=== PATIENT | female | born 1950 | race Caucasian/White ===

== ENCOUNTER → 2018-02-27 | Outpatient (CLI) | payer MEDICARE ==
[2018-02-27 09:02] LABS: Calcium 9.5 mg/dL (8.4-10.2)
[2018-02-27 09:04] LABS: Basophils % (A) 0 %; Eosinophils # (A) 0.1 k/uL (0-0.7); Eosinophils % (A) 1 %; HCT 38.7 % (34.0-46.0); HGB 12.5 gm/dL (11.4-16.0); Lymphocytes # (A) 1.4 k/uL (1.0-4.8); Lymphocytes % (A) 21 %; MCH 32.9 pg (25.0-35.0); MCHC 32.5 g/dL (31.0-37.0); MCV 101.2 fL (80.0-100.0); Macrocytosis Slight; Mean Platelet Volume 6.6; Monocytes # (A) 0.3 k/uL (0-1.0); Monocytes % (A) 5 %; Neutrophils % (A) 72 %; Platelet Count 312 k/uL (150-450); RBC 3.82 m/uL (3.80-5.40); RDW 13.4 % (11.5-15.5)
[2018-02-27 09:09] LABS: Partial Thromboplastin Time 26.3 sec (22.0-30.0)
[2018-02-27 09:21] LABS: Appearance,Urine Clear (Clear); Bilirubin,Urine Negative (Negative); Blood,Urine Negative (Negative); Color,Urine Yellow; Glucose,Urine (UA) Negative (Negative); Ketones,Urine Negative (Negative); Leukocyte Esterase,Urine Negative (Negative); Nitrite,Urine Negative (Negative); PH, Urine 5.5 (5.0-8.0); Protein,Urine Negative (Negative); Specific Gravity,Urine 1.013 (1.001-1.035); Urobilinogen,Urine <2.0 mg/dL (<2.0)
--- NOTE | 2018-02-27 11:27 | XR ---
EXAMINATION TYPE: XR chest 2V DATE OF EXAM: 02/27/2018 COMPARISON: None INDICATION: Surgical clearance TECHNIQUE: Frontal and lateral views of the chest are obtained. FINDINGS: The heart size is normal. The pulmonary vasculature is normal. Posterior costophrenic angle blunting is present. Correlate for atelectasis. Lungs otherwise are donya r. IMPRESSION: 1. Some posterior costophrenic angle atelectasis may be present. Chest is otherwise unremarkable.
== END | disposition home or self-care (01) ==
LOC: LABPAT 08:19
PROVIDERS: ATTEND Orthopaedic Surgery Orthopaedic Surgery of the Spine
DX: Z01.818 Encounter for other preprocedural examination (principal)
CPT/HCPCS: 71046; 80048; 81003; 85025; 85610; 85730; 86850; 86900; 86901

== ENCOUNTER 2018-03-06 10:01 | Inpatient (IN) | payer BC, MEDICARE ==
[2018-02-26 13:56] VITALS: BMI 24.2
[~2018-03-06 10:01] MED LIST: BACITRACIN 50,000 UNIT, POLYMYXIN B 500,000 UNIT in SODIUM CHLORIDE 0.9% IRRIGATIO 1,00... IRRIGATION ONE; DEXAMETHASONE SOD PHOSPHATE 10 MG/ML 1 ML VIAL IV ONE; LIDOCAINE 1% 20 ML VIAL (10MG/ML) FOR IV START INTRADERMA PRN; MIDAZOLAM 2 MG/2 ML VIAL IV PRN; ONDANSETRON 4 MG/2 ML VIAL IVP ONE; ceFAZolin IN SWFI 2 GM/20 ML SYRINGE IVP ONE
[2018-03-06] MEDS: LACTATED RINGERS 1,000 ML IV SCH ×2 (10:38→18:08)
[2018-03-06] MEDS ORDERED: MIDAZOLAM 2 MG/2 ML VIAL ONE (12:54)
[2018-03-06] MEDS ORDERED: KETAMINE 10 MG/ML 20 ML VIAL ONE (12:54)
[2018-03-06] MEDS ORDERED: HYDROmorphone (PF) 1 MG/ML ONE (12:54)
[2018-03-06] MEDS ORDERED: LIDOCAINE 1% INJ 10MG/ML (20 ML MDV) ONE (12:54)
[2018-03-06] MEDS ORDERED: ePHEDrine SULFATE/0.9% NACL/PF 50 MG/5 ML SYRINGE IV ONE (12:54)
[2018-03-06] MEDS ORDERED: PROPOFOL 10 MG/ML 20 ML VIAL IV ONE (12:54)
[2018-03-06] MEDS ORDERED: fentaNYL (PF) 50 MCG/ML 2 ML AMP ONE (12:54)
[2018-03-06] MEDS ORDERED: SUCCINYLCHOLINE CHLORIDE 100 MG/5 ML SYR IV ONE (12:54)
[2018-03-06] MEDS ORDERED: BUPIVACAIN-EPI 0.5%-1:200,000 30 ML VIAL SQ ONE (13:26)
[2018-03-06] MEDS ORDERED: THROMBIN (BOVINE) 5,000 UNIT VIAL MISCELLANE ONE (13:33)
[2018-03-06] MEDS ORDERED: GELATIN SPONGE,ABSORB (LARGE) 1 EACH SPONGE MISCELLANE ONE (13:34)
--- NOTE | 2018-03-06 14:12 | XR ---
EXAMINATION TYPE: XR cervical spine 1V DATE OF EXAM: 03/06/2018 COMPARISON: NONE HISTORY: Needle placement TECHNIQUE: Crosstable lateral view of the cervical spine FINDINGS: Localization needle was at the anterior C5-6 disc space level. IMPRESSION: Intraoperative needle placement as noted
[2018-03-06] MEDS ORDERED: LACTATED RINGERS 1,000 ML IV ONE (14:30)
[2018-03-06] MEDS ORDERED: fentaNYL (PF) 50 MCG/ML 2 ML AMP IVP ONE (14:46)
[2018-03-06] MEDS ORDERED: HYDROmorphone 1 MG/ML 1 ML SYRINGE IVP PRN (14:51)
[2018-03-06] MEDS ORDERED: ONDANSETRON 4 MG/2 ML VIAL IVP PRN (14:51)
[2018-03-06] MEDS ORDERED: BENZOCAINE/MENTHOL LOZENG 1 EACH LOZENGE MUCOUS MEM PRN (14:51)
[2018-03-06] MEDS ORDERED: ZOLPIDEM 10 MG TAB PO PRN (14:53)
[2018-03-06] MEDS ORDERED: ALBUTEROL NEBULIZED 2.5 MG/3 ML INHALATION PRN (14:53)
[2018-03-06] MEDS ORDERED: DIPHENOX-ATROP 2.5-0.025 MG 1 EACH TAB PO PRN (14:53)
[2018-03-06] MEDS ORDERED: ALPRAZolam 0.5 MG TAB PO PRN (14:53)
--- NOTE | 2018-03-06 15:01 | P.OP ---
Date of Procedure: 03/06/18 Preoperative Diagnosis: Cervical stenosis C4 5 C5 6 C6 7 Degenerative disc disease C4 5 C5 6 C6 7 Spondylolisthesis C5 6 Neck pain Upper extremity radiculopathy Postoperative Diagnosis: Same Anesthesia: GETA Pathology: none sent Condition: stable Disposition: PACU Description of Procedure: BRIEF OPERATIVE NOTE Preoperative Diagnosis: Cervical stenosis C4 5 C5 6 C6 7, spondylolisthesis C5 6 , degenerative disc disease, neck pain, upper extremity radiculopathy, herniated nucleus was a C4 5 C5 6 C6 7 Postoperative Diagnosis: Same Procedure: Anterior cervical decompression with discectomy and fusion C4 5 C5 6 C6 7 Placement of interbody graft C4 5 C5 6 C6 7 Application of anterior cervical plate C4 5 6 7 Surgeon: Dr. Stone Autism Motor Specialist: Jose Angel SANDY who is present throughout the entire the case persistence during positioning, dissection, exposure, visualization, and all crucial elements of the case as well as closure. Anesthesia: General anesthesia Estimated blood loss: Approximately 50 mL Complications: None apparent Components implanted: K2M the [place] anterior cervical plate system with screws and ViKos interbody allograft bone graft with 1 mL DBX bone putty Disposition: To recovery room in good stable condition. OPERATIVE INDICATIONS The patient has had long-standing issues in their neck and upper extremities. She was found to have significant stenosis with disc herniation and spondylolisthesis and disc degeneration at her cervical spine which correlated well with her neck pain in her upper extremity radiculopathy. She had been through aggressive conservative treatment however was not having any prolonged benefit despite aggressive conservative care. The patient has been through conservative treatment. We discussed various treatment options including surgery, and the patient wishes to proceed with surgery We discussed the risk, patient's alternatives and benefits of surgery including but not limited to, risk of bleeding risk of infection, risk of need for further surgery, risk of decreased, loss of motion, muscle function, malunion nonunion, hardware failure , nerve damage, paralysis, heart attack, and . OPERATIVE SUMMARY After discussing all the risks, patient alternatives and benefits at length, the patient elected to proceed with surgical intervention, signed informed consent, and presented for their procedure. The patient was seen and examined in the preoperative holding area and the surgical site was marked. The patient was given antibiotics and brought to the operating room. The patient was positioned on the operating room table in a supine position being careful to pad any bony prominences and pressure points. The patient was sedated and intubated by anesthesia in standard fashion. Once the airway and C- spine were stabilized the patient's arms were padded and tucked at her side, with her shoulders gently taped. The head was placed in a donut pad with the neck in good neutral alignment and position. We were careful to maintain the patient's cervical spine and good neutral alignment and position throughout. The patient was prepped and draped in a normal standard fashion. An appropriate timeout and keystone protocol performed. We were able to proceed with the surgery. The local wound area was infiltrated with local anesthetic. An incision was made transversely approximately 2-1/2 cm over the appropriate levels of C5 6. Dissection was taken down subcutaneously to the level of the platysma which was split in line with its fibers. Dissection was taken with a carotid approach, with the trachea and esophagus medial and the carotid sheath laterally. We dissected down to the anterior surface of the vertebral bodies of C4 5 6 and 7. Intraoperative x-ray was taken which showed a marker at the appropriate level at C5 6. With the appropriate level positively confirmed, we were able to proceed with discectomy at the appropriate levels starting at C4 5 and then C5 6 and then C6 7. All of the operative levels were exposed appropriately. The patient had all their twitches back, and there was no evidence of recurrent laryngeal issue. The wound was copiously irrigated and suctioned dry as had been done periodically throughout the case. At the appropriate level/levels, starting at C4 5 and then moving caudally to C5 6 and then to C6 7, I established an annulotomy with an 11 blade scalpel. A discectomy was performed with a combination of pituitary rongeurs, curettes, a high-speed bur, and Kerrison rongeurs. The posterior longitudinal ligament was taken down as were any posterior osteophytes. This gave good central and bilateral foraminal decompression. There is no evidence of any dural tear or leak. The endplates were prepared with a high-speed bur. With the endplates in good parallel position, I was able to size for the appropriate size interbody graft. The wound was irrigated and suctioned dry the graft was prepared and malleted into position. It had good alignment and position with the anterior surface flush with the anterior surface of the vertebral bodies. This was done similarly the appropriate levels at C4 5 C5 6 and C6 7. With the grafts intact, I was able to measure and contour and appropriate sized plate. The plate was positioned at the midline over the appropriate levels at C4 5 6 and 7. Screw holes were established with a hand drill and drill guide. Screws were placed in good alignment and position with excellent bony purchase. They were seated under the locking device. The construct was checked and found to be stable. Intraoperative x-ray was taken which showed good alignment and position of the implants at the appropriate levels at C4 5 6 inserted. There was no evidence of any dural tear or leak. Good hemostasis was maintained. The wound was copiously irrigated and suctioned dry as had been done periodically throughout the case. The platysma was closed with absorbable suture. The subcutaneous tissue was closed. The subcuticular tissue was closed with absorbable suture. The wound was cleaned and dried and dressed appropriately. A soft cervical collar was placed appropriately. The patient was woken up by anesthesia, extubated, transferred back gently to their hospital bed and brought to the recovery room in good stable condition. The patient will be admitted to the hospital for appropriate postoperative care , medical management and monitoring. We will continue to follow them closely about the postoperative course.
[2018-03-06] MEDS: fentaNYL (PF) 50 MCG/ML 2 ML AMP IV PRN ×2 (15:26→15:53)
[2018-03-06] MEDS: HYDROmorphone 1 MG/ML 1 ML SYRINGE IVP ONE ×2 (16:02→16:07)
[2018-03-06] MEDS: HYDROmorphone 1 MG/ML 1 ML SYRINGE IVP PRN ×2 (17:33→20:30)
[2018-03-06] MEDS: SODIUM CHLORIDE 0.9% 1,000 ML IV SCH (18:08)
[2018-03-06] MEDS: HYDROcodone/APAP 5-325MG 1 EACH TAB PO PRN ×2 (18:48→23:12)
--- NOTE | 2018-03-06 18:53 | XR ---
PROCEDURE: XR cervical spine 1V DATE AND TIME: 03/06/2018 3:32 PM CLINICAL INDICATION: H HARDWARE PLACEMENT TECHNIQUE: Department protocol. COMPARISON: 03/06/2018 at 1:41 PM FINDINGS: Single lateral cross table view obtained. C4-C7 anterior screw fixation plate has been applied with interbody fusions. IMPRESSION: Postoperative hardware placement view.
[2018-03-06] MEDS: buPROPion SR 150 MG TABLET.ER PO SCH (20:30)
[2018-03-06] MEDS ORDERED: POTASSIUM CHLORIDE ER 20 MEQ TAB.ER PO SCH (21:00)
[2018-03-07] MEDS: SODIUM CHLORIDE 0.9% 1,000 ML IV SCH (00:34)
[2018-03-07] MEDS: ceFAZolin IN SWFI 2 GM/20 ML SYRINGE IVP SCH ×2 (00:35→08:43)
[2018-03-07] MEDS: HYDROmorphone 1 MG/ML 1 ML SYRINGE IVP PRN ×2 (00:35→05:38)
[2018-03-07] MEDS: HYDROcodone/APAP 5-325MG 1 EACH TAB PO PRN (03:51)
[2018-03-07] MEDS ORDERED: LEVOTHYROXINE 25 MCG TAB PO SCH (06:30)
[2018-03-07 07:16] VITALS: BP 105/60; PULSE 66; RESP 12; TEMP 98.4
[2018-03-07] MEDS ORDERED: PANTOPRAZOLE 40 MG TABLET PO SCH (07:30)
[2018-03-07] MEDS: buPROPion SR 150 MG TABLET.ER PO SCH (08:42)
[2018-03-07] MEDS ORDERED: CITALOPRAM HYDROBROMIDE 20 MG TAB PO SCH (09:00)
[2018-03-07] MEDS ORDERED: SENNOSIDES-DOCUSATE SODIUM 1 EACH TAB PO SCH (09:00)
[2018-03-07] MEDS ORDERED: LOSARTAN 50 MG TAB PO SCH (09:00)
[2018-03-07] MEDS ORDERED: ATORVASTATIN 40 MG TAB PO SCH (09:00)
[2018-03-07] MEDS ORDERED: MAGNESIUM OXIDE 400 MG TAB PO SCH (09:00)
[2018-03-07] MEDS ORDERED: HYDROCHLOROTHIAZIDE 12.5 MG CAP PO SCH (09:00)
[2018-03-07] MEDS ORDERED: oxyCODONE-APAP 10-325MG 1 EACH TAB PO PRN (09:11)
--- NOTE | 2018-03-07 10:59 | P.DS ---
Providers Date of admission: 03/06/18 10:01 Attending physician: Montserrat Stone Primary care physician: Raphael Vela [facility] Course: The patient presented on the day of admission as per her operative note. The patient feels that she is doing well. She has been able to have some soft diet and liquids. She has been up to the bathroom. She feels her arms are doing well and her neck pain is controlled. Physical Exam The incision site is clean dry and intact. There is no erythema no drainage. There is no purulence no evidence of infection. Her neck is soft and supple Abdomen soft and nontender. Chest has good excursion with deep inspiration and expiration. The patient has active and passive range of motion intact at the upper and lower extremities. There is no acute change in neurologic status. She has good motion through her bilateral upper extremities Hospital Course Postoperative day #1 status post anterior cervical discectomy and fusion C4 5 C5 6 and C6 7 for her cervical stenosis with herniated nucleus pulposis disc degeneration and upper extremity radiculopathy. The patient has made improvement with her surgery. The patient has been making good progress postoperatively. She has been up and about in her room. They have completed the prophylactic antibiotics without any signs or symptoms of infection. The patient has been able to advance their diet with soft foods and liquids, and is tolerating diet adequately. She feels she will be okay to increase her diet adequately. The pain was initially controlled with IV medications and is now controlled appropriately with oral medications. The patient has been able to increase their mobilization. The patient has progressed appropriately. I think they are in good stable condition for discharge today. We're antibiotics and also prescribed a new prescription for [place] 10 one tablet by mouth every 6 hours when necessary severe pain. They will be sent home with appropriate prescriptions. I answered their questions to the best of my ability in a language that they can understand and they are agreeable with the plan. They will follow up as directed in approximately 2 weeks or sooner if she is having any problems. Patient Condition at Discharge: Good Plan - Discharge Summary Discharge Rx Participant: Yes New Discharge Prescriptions: New HYDROcodone/APAP 10-325MG [[place] 10-325] 1 tab PO Q6HR PRN 3 Days #28 tab PRN Reason: Severe Pain No Action Zolpidem [Ambien] 10 mg PO HS PRN PRN Reason: Insomnia ALPRAZolam [Xanax] 0.5 mg PO TID PRN PRN Reason: Anxiety Ondansetron [Zofran] 4 mg PO Q4HR PRN PRN Reason: Nausea Diphenox-Atrop 2.5-0.025 mg [Lomotil] 1 - 2 tab PO QID PRN PRN Reason: Diarrhea buPROPion SR [Wellbutrin Sr] 150 mg PO BID Magnesium Oxide 400 mg PO DAILY Potassium Chloride [Klor-Con 20] 20 meq PO HS Citalopram Hydrobromide [CeleXA] 40 mg PO DAILY Atorvastatin Calcium [Lipitor] 40 mg PO DAILY Omeprazole 40 mg PO DAILY Losartan/Hydrochlorothiazide [Losartan-Hctz 100-12.5 mg Tab] 1 tab PO DAILY Levothyroxine Sodium [Synthroid] 25 mcg PO DAILY oxyCODONE-APAP 10-325MG [Percocet 10-325 mg] 1 tab PO TID PRN PRN Reason: Pain Albuterol Sulfate [Proair Hfa] 2 puff INHALATION RT-Q4H PRN PRN Reason: Shortness Of Breath Discharge Medication List ALPRAZolam [Xanax] 0.5 mg PO TID PRN 09/25/14 [History] Zolpidem [Ambien] 10 mg PO HS PRN 09/25/14 [History] Albuterol Sulfate [Proair Hfa] 2 puff INHALATION RT-Q4H PRN 02/26/18 [History] Atorvastatin Calcium [Lipitor] 40 mg PO DAILY 02/26/18 [History] Citalopram Hydrobromide [CeleXA] 40 mg PO DAILY 02/26/18 [History] Diphenox-Atrop 2.5-0.025 mg [Lomotil] 1 - 2 tab PO QID PRN 02/26/18 [History] Levothyroxine Sodium [Synthroid] 25 mcg PO DAILY 02/26/18 [History] Losartan/Hydrochlorothiazide [Losartan-Hctz 100-12.5 mg Tab] 1 tab PO DAILY [History] Magnesium Oxide 400 mg PO DAILY 02/26/18 [History] Omeprazole 40 mg PO DAILY 02/26/18 [History] Ondansetron [Zofran] 4 mg PO Q4HR PRN 02/26/18 [History] Potassium Chloride [Klor-Con 20] 20 meq PO HS 02/26/18 [History] buPROPion SR [Wellbutrin Sr] 150 mg PO BID 02/26/18 [History] oxyCODONE-APAP 10-325MG [Percocet 10-325 mg] 1 tab PO TID PRN 02/26/18 [History] HYDROcodone/APAP 10-325MG [[place] 10-325] 1 tab PO Q6HR PRN 3 Days #28 tab [Rx] Follow up Appointment(s)/Referral(s): Montserrat Stone DO [Doctor of Osteopathic Medicine] - 2 Weeks Activity/Diet/Wound Care/Special Instructions: May ambulate to tolerance Avoid heavy or rigorous activity No heavy lifting No overhead work Keep dressing intact and clean. May shower with waterproof Tegaderm intact. On Sunday May shower with area uncovered and may leave uncovered if patient wishes. Keep Steri-Strips intact and allow them to fray off on their own. Do not soak in a tub Discharge Disposition: HOME SELF-CARE
--- NOTE | 2018-03-08 13:17 | CDI ---
Last Revision, June 2017 Documentation Clarification Form Date: 03/08/18 From: Lauren Navjot Sadaf Sarmiento, Hydroelectric Powerplant Supervisor Hours-8:30 am & 5 pm M-F Admit Date: 03/06/2018 10:01:00 AM Patient Name: Alina Justice Visit Number: [id number] Discharge Date: 03/07/18 ATTENTION: The Clinical Documentation Specialists (CDI) and [facility] Coding Staff appreciate your assistance in clarifying documentation. Please respond to the clarification below the line at the bottom and electronically sign. The CDI & [facility] Coding staff will review the response and follow-up if needed. Please note: Queries are made part of the Legal Health Record. If you have any questions, please contact the author of this message via ITS. Montserrat Gandhi N., DO Documentation in the Operative Report included: discectomy C4-5, C5-6 & C6-7 Pre & Post Operative Diagnosis: Cervcical stenosis C4-5, C5-6 & C6-7; spondylolisthesis C5-6; degenerative disc disease, neck pain, upper extremity radiculopathy; HNP C4-5, C5-6, C6-7 In order to capture the severity of condition, please specify the discectomy: Complete Partial Please continue to document in your progress notes and discharge summary in order to capture severity of illness and risk of mortality. Include clinical findings that support your diagnosis. MTDD
== END 2018-03-07 12:15 | disposition home or self-care (01) | DRG 473 ==
LOC: 2ORMAIN 10:01 → 3SUR 16:25
PROVIDERS: ADMIT Orthopaedic Surgery Orthopaedic Surgery of the Spine; ATTEND Orthopaedic Surgery Orthopaedic Surgery of the Spine
PROC: 0RG20K0 Fusion of 2 or more Cervical Vertebral Joints with Nonautologous Tissue Substitute, Anterior Approach, Anterior Column, Open Approach (ICD-10-PCS; 2018-03-06)
PROC: 0RT30ZZ Resection of Cervical Vertebral Disc, Open Approach (ICD-10-PCS; 2018-03-06)
PROC: 0RG20A0 Fusion of 2 or more Cervical Vertebral Joints with Interbody Fusion Device, Anterior Approach, Anterior Column, Open Approach (ICD-10-PCS; principal; 2018-03-06 11:45)
DX: M48.02 Spinal stenosis, cervical region (principal); M50.121 Cervical disc disorder at C4-C5 level with radiculopathy; E03.9 Hypothyroidism, unspecified; J44.9 Chronic obstructive pulmonary disease, unspecified; M43.12 Spondylolisthesis, cervical region; I10 Essential (primary) hypertension; F32.9 Major depressive disorder, single episode, unspecified; F41.9 Anxiety disorder, unspecified; K58.0 Irritable bowel syndrome with diarrhea; K57.90 Diverticulosis of intestine, part unspecified, without perforation or abscess without bleeding; F17.210 Nicotine dependence, cigarettes, uncomplicated; Z71.6 Tobacco abuse counseling; K21.9 Gastro-esophageal reflux disease without esophagitis; Z79.890 Hormone replacement therapy; Z79.899 Other long term (current) drug therapy; Z90.710 Acquired absence of both cervix and uterus; Z88.1 Allergy status to other antibiotic agents; Z88.8 Allergy status to other drugs, medicaments and biological substances; Z82.49 Family history of ischemic heart disease and other diseases of the circulatory system; Z80.1 Family history of malignant neoplasm of trachea, bronchus and lung; Z83.79 Family history of other diseases of the digestive system
CPT/HCPCS: 72020; 86850; 86900; 86901

== ENCOUNTER 2020-10-25 16:14 | Emergency (ER) | payer MEDICARE ==
[2020-10-25 17:34] VITALS: BP 146/75; PULSE 81; RESP 19; TEMP 97.8
[2020-10-25 18:29] LABS: Basophils % (A) 0 %; Eosinophils # (A) 0.1 k/uL (0-0.7); Eosinophils % (A) 0 %; HCT 36.8 % (34.0-46.0); HGB 13.1 gm/dL (11.4-16.0); Lymphocytes # (A) 2.2 k/uL (1.0-4.8); Lymphocytes % (A) 17 %; MCH 35.3 pg (25.0-35.0); MCHC 35.5 g/dL (31.0-37.0); MCV 99.3 fL (80.0-100.0); Mean Platelet Volume 6.5; Monocytes # (A) 0.6 k/uL (0-1.0); Monocytes % (A) 4 %; Neutrophils # (A) 10.2 k/uL (1.3-7.7); Neutrophils % (A) 77 %; Platelet Count 288 k/uL (150-450); RBC 3.71 m/uL (3.80-5.40); RDW 13.2 % (11.5-15.5); WBC 13.1 k/uL (3.8-10.6)
[2020-10-25 18:40] LABS: Albumin 4.3 g/dL (3.5-5.0); Calcium 9.5 mg/dL (8.4-10.2); Potassium 3.3 mmol/L (3.5-5.1); Total Bilirubin 0.6 mg/dL (0.2-1.3); Total Protein 6.7 g/dL (6.3-8.2)
== END 2020-10-25 19:00 | disposition left against medical advice (07) ==
LOC: EC 16:14
DX: R10.9 Unspecified abdominal pain (principal); Z53.21 Procedure and treatment not carried out due to patient leaving prior to being seen by health care provider
CPT/HCPCS: 36415; 80053; 84484; 85025; 85730; 99499

== ENCOUNTER 2023-03-15 06:59 | Day surgery (SDC) | payer MEDICARE ==
[~2023-03-15 06:59] MED LIST changes: -BACITRACIN 50,000 UNIT, POLYMYXIN B 500,000 UNIT in SODIUM CHLORIDE 0.9% IRRIGATIO 1,00... IRRIGATION ONE; -DEXAMETHASONE SOD PHOSPHATE 10 MG/ML 1 ML VIAL IV ONE; +LACTATED RINGERS 1,000 ML IV SCH; -LIDOCAINE 1% 20 ML VIAL (10MG/ML) FOR IV START INTRADERMA PRN; -MIDAZOLAM 2 MG/2 ML VIAL IV PRN; -ONDANSETRON 4 MG/2 ML VIAL IVP ONE; -ceFAZolin IN SWFI 2 GM/20 ML SYRINGE IVP ONE
[2023-03-15] MEDS ORDERED: LACTATED RINGERS 1,000 ML IV SCH (07:37)
--- NOTE | 2023-03-15 07:47 | CT ---
EXAMINATION TYPE: CT chest wo con CT DLP: 342.60 mGycm, Automated exposure control for dose reduction was used. DATE OF EXAM: 03/15/2023 7:32 AM COMPARISON: PET/CT 02/23/2023 CLINICAL INDICATION:Female, 72 years old with history of R91.1 Solitary pulmonary nodule; PHH, Solita ry pulmonary nodule, ION bronchoscopy TECHNIQUE: Multiple axial images were obtained through the chest without IV contrast. Lack of IV or o ral contrast limits evaluation of solid and hollow organ viscera. . Coronal and sagittal reformats re viewed. FINDINGS: LUNGS/ PLEURA: No pleural effusion or pneumothorax. Mild centrilobular emphysematous changes. Bilater al lower lobe and right middle lobe linear scarring and/or atelectasis. Subpleural right lower lobe s piculated 1.7 cm nodular density. This is FDG avid on prior PET CT. Additional smaller nodular consol idation just superior to this. AIRWAY: Patent and unremarkable.. HEART: Size within normal limits. No pericardial effusion. Mild coronary arterial calcifications. MEDIASTINUM: No gross evidence of adenopathy. VASCULATURE: No aortic aneurysm. MUSCULOSKELETAL: Mild disc degeneration changes are present throughout the thoracolumbar spine. No ac rhett osseous abnormality. Anterior cervical fusion hardware identified. Benign vertebral hemangioma wi thin the T10 vertebral body. SOFT TISSUES/LYMPH NODES: Unremarkable. LOWER NECK: No significant findings. UPPER ABDOMEN: No significant findings. IMPRESSION: 1. Right lower lobe 1.7 cm spiculated nodular density which was FDG avid on prior PET/CT concerning f or malignancy. 2. Mild COPD changes.
[2023-03-15] MEDS ORDERED: LIDOCAINE 1% (10MG/ML) FOR IV START INTRADERMA ONE (07:55)
[2023-03-15] MEDS ORDERED: PROPOFOL 10 MG/ML 20 ML VIAL IV ONE (08:00)
[2023-03-15] MEDS ORDERED: NEOSTIGMINE 1 MG/ML 10 ML VIAL ONE (08:00)
[2023-03-15] MEDS ORDERED: ONDANSETRON 4 MG/2 ML VIAL ONE (08:00)
[2023-03-15] MEDS ORDERED: fentaNYL (PF) 50 MCG/ML 2 ML AMP ONE (08:00)
[2023-03-15] MEDS ORDERED: ROCURONIUM 10 MG/ML (5 ML VIAL) IV ONE (08:00)
[2023-03-15] MEDS ORDERED: SUCCINYLCHOLINE CHLORIDE 200 MG/10 ML VIAL IV ONE (08:00)
[2023-03-15] MEDS ORDERED: GLYCOPYRROLATE 0.2 MG/ML 2 ML VIAL ONE (08:00)
[2023-03-15] MEDS ORDERED: DEXAMETHASONE SOD PHOSPHATE 4 MG/ML 1 ML VIAL ONE (08:00)
--- NOTE | 2023-03-15 09:23 | P.PCN ---
Date of Procedure: 03/15/23 Operative Findings: Preoperative Diagnosis: Right lower lobe nodule, 1.7 centimeter Postoperative Diagnosis: Right upper lobe nodule, 1.7 centimeter Mediastinal adenopathy Procedure(s) Performed: Flexible bronchoscopy Robotic-assisted bronchoscopy and addition to radial ultrasound evaluation of the pulmonary nodule Robotic-assisted transbronchial needle aspirate, transbronchial biopsies, transbronchial brushing of the right lower lobe nodule in addition to a bronchioloalveolar lavage EBUS TBNA of a station [address] Anesthesia: GETA Surgeon: Kalin Lyle Estimated Blood Loss (ml): 0 Pathology: other Condition: stable Disposition: same day Operative Findings: A physical exam was performed. Informed consent was obtained from the patient after explaining all the risks (pneumothorax, life threatening bleeding, infection and adverse effects due to medications), benefits and alternatives to the procedure which the patient appeared to understand and so stated. The patient was connected to the monitoring devices. General anesthesia was induced and the patient was intubated by anesthesia. A final timeout was performed and the procedure confirmed by the attending staff bronchoscopist. The bronchoscope was inserted and the airway examined. The flexible bronchoscope was removed and the robotic bronchoscope was inserted. Registration was completed. I next guided the robotic bronchoscope using the navigation system into the right lower lobe posterior segment. Once in proper position, the bronchoscope was frozen. The radial EBUS probe was placed through the bronchoscope and confirmed abnormal u/s images vs normal lung. A needle was placed through the working channel and under fluoroscopic guidance, we sampled the area thought to have the mass twice. We then used a cloud biopsy pattern with ultrasound confirmation for 2 additional passes with the needle. U/S evaluation was then used to reconfirm location. Forceps were next introduced through working channel and extended the appropriate distance and 6 transbronchial biopsies were performed using fluoroscopic guidance. The u/s probe was then reinserted to confirm location. When confirmed this process was repeated for a total of 6 transbronchial biopsies. After reassessment with EBUS, a brush was placed through the extendable working channel for 1 pass with fluoroscopic guidance. U/S evaluation was then used to confirm location. 40ml of saline was then instilled into the area of the lesion. The robotic bronchoscope was removed and the airway inspected with a flexible bronchoscope and 10 ml of effluent from the BAL was collected. Fluoroscopic check for pneumothorax was negative upon completion of the procedure. There was 0 ml blood loss with the procedure. Following that, the endobronchial ultrasound was inserted for mediastinal lymph node evaluation. A complete examination is grossly patient's was done. The patient was found to have a 5x7 mm subcarinal station 7 lymph node and 7x9mm station [address] Using a 22-gauge needle, transbronchial needle aspirate of the subcarinal station 7 and 10 $ lymph node was done. A total of 3 passes were obtained from each station without any complications. Endobronchial ultrasound was removed. Flexible bronchoscope was inserted and regular suctioning was done. At the completion of the procedure, no residual secretions or bloody material within the airway. The bronchoscope was removed. The patient was extubated. FINDINGS: 1.The airways appeared normal 2 Successful navigation, ultrasonographic identification, and biopsies of right lower lobe pulmonary nodule 3.The the radial ultrasound view was (Concentric/Eccentric)}. 4 subcarinal lymph node, station [address] RECOMMENDATIONS: Await pathology and cytology results The referring physician will be alerted to the results when available. The patient was advised to follow up with the referring physician with the biopsy results Patient will be called with results.
[2023-03-15 09:44] VITALS: TEMP 96.8
--- NOTE | 2023-03-15 10:13 | FL ---
Intraoperative/procedural fluoroscopic services were provided for bronchoscopy. Total fluoroscopy deisi e is 1.10 minutes with a total of 1 submitted image to PACS. Total DAP 2.7508 Gycm2. Please see the operative note for further details.
--- NOTE | 2023-03-15 10:16 | XR ---
EXAMINATION TYPE: XR chest 1V DATE OF EXAM: 03/15/2023 10:05 AM COMPARISON: Chest radiographs from CT chest 03/15/2023, chest radiograph 02/27/2018 TECHNIQUE: XR chest 1V Frontal view of the chest. CLINICAL INDICATION:Female, 72 years old with history of post biopsy; FINDINGS: Lungs/Pleura: There is no evidence of pleural effusion, focal consolidation, or pneumothorax. Hyperi nflation compatible with COPD. Pulmonary vascularity: Unremarkable. Heart/mediastinum: Cardiomediastinal silhouette is unremarkable. Musculoskeletal: No acute osseous pathology. Cervical fusion hardware. IMPRESSION: 1. Postlung biopsy without pneumothorax. 2. COPD changes.
[2023-03-15 10:54] VITALS: BP 151/76; PULSE 65; RESP 16
== END 2023-03-15 11:12 | disposition home or self-care (01) ==
LOC: ORWHC2ENDO 06:59
PROVIDERS: ATTEND Internal Medicine Critical Care Medicine
DX: R91.1 Solitary pulmonary nodule (principal); J44.9 Chronic obstructive pulmonary disease, unspecified; R59.0 Localized enlarged lymph nodes; I10 Essential (primary) hypertension; E78.5 Hyperlipidemia, unspecified; Z90.89 Acquired absence of other organs; Z79.899 Other long term (current) drug therapy
CPT/HCPCS: 87798 ×3; 87496; 87498; 87529; 88305; 88342; 87502; 87634; 88341; 87070; 87205; 87116; 87102; 87206; 71045; 71250; 31628; 31629; 31623; 31624; 31652; J0330; J1100; J2710; J2405; J3010; J2704; S2900

== ENCOUNTER → 2023-04-06 | Outpatient (CLI) | payer MEDICARE ==
[~2023-04-06] MED LIST changes: -LACTATED RINGERS 1,000 ML IV SCH; +REGADENOSON 0.4 MG/5 ML SYRINGE IV ONE
--- NOTE | 2023-04-06 12:13 | CA ---
Lexiscan Nuclear Stress Test Report Name: Alina Justice Exam Date: 04/06/2023 09:12 Exam Location: [facility] Stress Ht (in): 64 Wt (lb): 130 BSA: 1.63 Ordering Phys: Nessa Andrade MD Referring Phys: NESSA ANDRADE,, Technologist: Tray Cody Age: 72 Gender: F : 1950 Procedure CPT: Indications: I20.9 ANGINA PECTORIS, UNSPECIFIED ICD-10 Codes: Patient History: Medications: Meds past 24 hrs: Pretest Chest Pain: STRESS TEST Lexiscan Protocol Exercise Duration (min:sec): 02:[address] Depressions (mm): Angina Score: Jansen Score: Resting HR (bpm): 81 Peak HR (bpm): 96 Resting BP (mmHg): 146 / 75 Peak BP (mmHg): 165 / 60 MPHR: 149 Target HR: 127 % MPHR: 64 METS: 1.0 Total Dose: Peak Dose: Atropine: Double Product: 27137 BP Response: Stress Termination: PROTOCOL COMPLETE Stress Symptoms: No chest pain or symptoms Stress Summary: ECG ANALYSIS Resting ECG: Stress ECG: CONCLUSIONS At baseline EKG showed sinus rhythm, normal axis, no significant ST or T wave abnormalities. Patient recieved IV infusion of Lexiscan 0.4mg and at peak infusion EKG showed no significant change from baseline. Conclusions: 1. Normal EKG response to Lexiscan infusion 2. Nuclear imaging to be reported separately. Dr. Marek Paniagua DO (Electronically Signed) Final Date: 06 April 2023 12:12
--- NOTE | 2023-04-06 12:46 | NM ---
EXAMINATION TYPE: NM stress lexiscan cardiolite DATE OF EXAM: 04/06/2023 COMPARISON: NONE CLINICAL INDICATION: Female, 72 years old with history of I20.9 ANGINA PECTORIS, UNSPECIFIED; TECHNIQUE: After the intravenous administration of 9.8 mCi Tc 99m Sestamibi - Cardiolite resting SPE CT images acquired 45 minutes post injection. The patient received 0.4mg Lexiscan, 25.3 mCi Tc 99m Sestamibi - Stress images obtained [address] injection FINDINGS: Review of stress and rest SPECT images demonstrates no distinct perfusion abnormality. Gated analysi s shows normal wall motion with an estimated left ventricular ejection fraction of 82 %. IMPRESSION: No scintigraphic evidence for reversible ischemia.
== END | disposition home or self-care (01) ==
LOC: RADNMMAIN 07:08
PROVIDERS: ATTEND Thoracic Surgery (Cardiothoracic Vascular Surgery)
DX: Z01.818 Encounter for other preprocedural examination (principal); I20.9 Angina pectoris, unspecified
CPT/HCPCS: 93017; 78452; A9500

== ENCOUNTER 2023-04-13 05:34 | Inpatient (IN) | payer MEDICARE ==
[2023-04-09 14:42] VITALS: BMI 22.3
[2023-04-13] MEDS ORDERED: DEXAMETHASONE SOD PHOSPHATE 4 MG/ML 1 ML VIAL IV ONE (06:01)
[2023-04-13] MEDS ORDERED: ONDANSETRON 4 MG/2 ML VIAL IVP ONE (06:01)
[2023-04-13] MEDS ORDERED: LACTATED RINGERS 1,000 ML IV SCH (06:01)
[2023-04-13] MEDS ORDERED: LIDOCAINE 1% (10MG/ML) FOR IV START INTRADERMA PRN (06:01)
[2023-04-13] MEDS ORDERED: MIDAZOLAM 2 MG/2 ML VIAL IV PRN (07:00)
[2023-04-13] MEDS ORDERED: HYDROmorphone 0.5 MG/0.5 ML SYRINGE IVP PRN (07:00)
[2023-04-13] MEDS ORDERED: GLYCOPYRROLATE 0.2 MG/ML 2 ML VIAL ONE (07:38)
[2023-04-13] MEDS ORDERED: DEXAMETHASONE SOD PHOSPHATE 4 MG/ML 1 ML VIAL ONE (07:38)
[2023-04-13] MEDS ORDERED: PHENYLEPHRINE-0.9% NACL SYG 1,000 MCG/10 ML SYRINGE ONE (07:38)
[2023-04-13] MEDS ORDERED: MIDAZOLAM 2 MG/2 ML VIAL ONE (07:38)
[2023-04-13] MEDS ORDERED: ROPIVACAINE 5 MG/ML 30 ML VIAL ONE (07:38)
[2023-04-13] MEDS ORDERED: HYDROmorphone (PF) 1 MG/ML ONE (07:38)
[2023-04-13] MEDS ORDERED: SUCCINYLCHOLINE CHLORIDE 200 MG/10 ML VIAL IV ONE (07:38)
[2023-04-13] MEDS ORDERED: NEOSTIGMINE 1 MG/ML 10 ML VIAL ONE (07:38)
[2023-04-13] MEDS ORDERED: ROCURONIUM 10 MG/ML (5 ML VIAL) IV ONE (07:38)
[2023-04-13] MEDS ORDERED: PROPOFOL 10 MG/ML 20 ML VIAL IV ONE (07:38)
[2023-04-13] MEDS ORDERED: SODIUM CHLORIDE 0.9% (PF) 10 ML VIAL ONE (07:38)
[2023-04-13] MEDS ORDERED: LIDOCAINE 2% INJ 20 MG/ML (2 ML VIAL) ONE (07:38)
[2023-04-13] MEDS ORDERED: fentaNYL (PF) 50 MCG/ML 2 ML AMP ONE (07:38)
[2023-04-13] MEDS ORDERED: ePHEDrine 50 MG/ML 1 ML VIAL ONE (07:38)
[2023-04-13] MEDS ORDERED: BUPIVACAINE (PF) 0.5% 30 ML VIAL SQ ONE (08:12)
--- NOTE | 2023-04-13 10:24 | P.OP ---
Date of Procedure: 04/13/23 Preoperative Diagnosis: Lung Nodule Postoperative Diagnosis: Same Procedure(s) Performed: 1. Bronchoscopy 2. Right robotic assisted thorascopic surgery with wedge resection of right lower lobe x 2. 3. Mediastinal lymph node dissection with frozen section analysis 4. Intercostal nerve block - 2 levels. Anesthesia: GETA Surgeon: Max Andrade Anatomical Embalmer #1: Geneva Davila Anatomical Embalmer #2: Solo Gastelum Estimated Blood Loss (ml): 25 Pathology: other (RLL wedge x 2, LN stations R9, R8, 7, R10, R4) Condition: stable Disposition: PACU Indications for Procedure: Mrs Justice is a 72 year-old with a significant smoking history who presented to her PCP with generalized malaise and weight loss. She underwent CT Chest which revealed a 1.7cm nodule in the superior segment of the RLL. Biopsy of the nodule revealed squamous atypia and this nodule was FDG avid. In addition she had some very mild non specific uptake in the hilum on the PET/CT without overt lymphadenopathy and EBUS was attempted but no lymphadenopathy was identified. W edge resection with MLND was recommended given her current active smoking status and marginal DLCO. Operative Findings: Frozen section analysis of LN stations R8, 7 and R10 negative for malignancy. Wedge resection of nodule performed. A second wedge resection was performed over the previous staple line to obtain additional margin just in case it was close. Description of Procedure: The patient underwent arterial line placement in the pre-operative suite. She was brought back to the operating room and placed in the supine position. She was intubated with a 35F AGUSTO and bronchoscopy was performed to confirm placement and for diagnostic purposes. There were no endobronchial lesions and there was minimal secretions. The patient was turned on the left lateral decubitus postion and the right lung was isolated. The right chest was prepped and draped in the usual sterile fashion. Antibiotics were given. I made a 8mm incision in the 8th intercostal space posterior axillary line. The camera was inserted and entry into the pleural cavity was confirmed. The chest was insuflated to 10mg Hg. Two additional 12mm ports were placed 10cm anteriorly and posteriorly in the same intercostal space. A 15mm assist port was placed in the 10th intercostal space mid axillary line and a 4th 8mm port was placed posteriorly in the 8th ICS. Intercostal nerve block was performed at both levels. The [employer] Xi robot was docked. I began by taking down the inferior pulmonary ligament using bipolar cautery. Level 8 and 9 lymph node stations were harvested here. This dissection was carried up posteriorly and the level 7 and 10 lymph nodes were obtained. The pleura above the azygous vein was incised and the level 4 nodes were harvested here. These were sent for frozen section analysis. In the meantime the nodule was identified and wedged out using serial firings of the robotic stapler green loads. This was sent to permanent pathology. The staple line was resected with a second wedge to obtain additional margin. The frozen section analysis on 3 LN stations was negative. At this time the robot was undocked, pleural cavity irrigated and a 28F chest tube was inserted via the anterior incision. All incisions were closed in layers and the right lung was re-expanded. The patient was extubated and sent to recovery.
[2023-04-13] MEDS: fentaNYL (PF) 50 MCG/ML 2 ML AMP IVP PRN ×2 (10:38→11:00)
[2023-04-13] MEDS ORDERED: droPERidol 5 MG/2 ML VIAL IVP ONE (10:41)
--- NOTE | 2023-04-13 11:34 | XR ---
EXAMINATION TYPE: XR chest 1V portable DATE OF EXAM: 04/13/2023 10:38 AM CLINICAL INDICATION:Female, 72 years old with history of post wedge resection; [facility] COMPARISON: Chest radiographs from 03/15/2023 TECHNIQUE: XR chest 1V portable Frontal view of the chest. FINDINGS: Lungs/Pleura: There is no evidence of pleural effusion, focal consolidation, or pneumothorax. Pulmonary vascularity: Unremarkable. Heart/mediastinum: Cardiomediastinal silhouette is enlarged and stable. Musculoskeletal: No acute osseous pathology. Other findings: None Lines/Tubes: Right thoracotomy tube is present without evidence of pneumothorax. IMPRESSION: Interval thoracotomy tube placement with some subcutaneous emphysema. Trace apical pneumothorax.
[2023-04-13] MEDS ORDERED: HYDROmorphone 0.5 MG/0.5 ML SYRINGE IVP ONE (13:11)
[2023-04-13] MEDS ORDERED: DEXTROSE 5%-0.45% NACL 1,000 ML IV SCH (14:46)
[2023-04-13] MEDS ORDERED: ALPRAZolam 0.5 MG TAB PO PRN (14:46)
[2023-04-13] MEDS ORDERED: IPRATROPIUM-ALBUTEROL 3 ML NEB IH PRN (14:46)
[2023-04-13] MEDS ORDERED: ZOLPIDEM 5 MG TAB PO PRN (14:46)
[2023-04-13] MEDS ORDERED: ONDANSETRON 4 MG/2 ML VIAL IVP PRN (14:46)
[2023-04-13] MEDS ORDERED: ACETAMINOPHEN TAB 325 MG TAB PO PRN (14:46)
[2023-04-13] MEDS: HYDROmorphone 0.5 MG/0.5 ML SYRINGE IVP PRN ×3 (15:12→23:59)
[2023-04-13] MEDS: IPRATROPIUM-ALBUTEROL 3 ML NEB IH SCH ×3 (17:01→21:16)
[2023-04-13] MEDS: HYDROcodone/APAP 10-325MG 1 EACH TAB PO PRN (17:33)
[2023-04-13] MEDS: HEPARIN SODIUM,PORCINE 5,000 UNIT/ML 1 ML VIAL SQ SCH ×2 (17:38→23:59)
[2023-04-13] MEDS: buPROPion SR 150 MG TABLET.ER PO SCH (20:07)
[2023-04-13] MEDS ORDERED: ATORVASTATIN 40 MG TAB PO SCH (21:00)
[2023-04-13] MEDS ORDERED: SYMBICORT 160-4.5 MCG INHALER INHALATION SCH (21:00)
[2023-04-14 00:38] VITALS: RESP 18
[2023-04-14] MEDS: HYDROcodone/APAP 10-325MG 1 EACH TAB PO PRN (03:40)
[2023-04-14 07:11] LABS: Basophils % (A) 0 %; Eosinophils % (A) 0 %; HCT 33.3 % (34.0-46.0); HGB 10.7 gm/dL (11.4-16.0); Lymphocytes # (A) 1.9 k/uL (1.0-4.8); Lymphocytes % (A) 15 %; MCHC 32.2 g/dL (31.0-37.0); MCV 105.7 fL (80.0-100.0); Macrocytosis Slight; Mean Platelet Volume 7.5; Monocytes # (A) 0.7 k/uL (0-1.0); Monocytes % (A) 5 %; Neutrophils % (A) 79 %; Platelet Count 232 k/uL (150-450); RBC 3.15 m/uL (3.80-5.40); RDW 12.3 % (11.5-15.5); WBC 12.7 k/uL (3.8-10.6)
--- NOTE | 2023-04-14 07:26 | XR ---
EXAMINATION TYPE: XR chest 1V portable DATE OF EXAM: 04/14/2023 COMPARISON: 04/13/2023 HISTORY: Post wedge resection. TECHNIQUE: Single frontal view of the chest is obtained. FINDINGS: There is a right chest tube unchanged in position and no pneumothorax. There is a tiny amount of subc utaneous emphysema along the right lateral chest wall which is decreased compared to previous. There is been interval development of a band of opacity in the left lung base consistent with mild at electasis. There is no pleural effusion. Heart size and pulmonary vasculature are within normal limits. The osseous structures are intact. IMPRESSION: 1. No change in the right chest tube and no pneumothorax. 2. Interval development of mild left lower lobe atelectasis. 3. Decreasing right lateral chest wall subcutaneous emphysema.
[2023-04-14] MEDS ORDERED: PANTOPRAZOLE 40 MG TABLET PO SCH ×2 (07:30→09:00)
[2023-04-14 07:35] LABS: African American GFR (CKD) 76 (>60 ml/min/1.73 sqM); Anion Gap 4 mmol/L; Blood Urea Nitrogen 11 mg/dL (7-17); Calcium 8.3 mg/dL (8.4-10.2); Carbon Dioxide 29 mmol/L (22-30); Chloride 106 mmol/L (98-107); Glucose 176 mg/dL (74-99); Non-African American GFR(CKD) 66 (>60 ml/min/1.73 sqM); Potassium 3.8 mmol/L (3.5-5.1); Sodium 139 mmol/L (137-145)
[2023-04-14] MEDS: HYDROmorphone 0.5 MG/0.5 ML SYRINGE IVP PRN ×2 (07:39→10:44)
[2023-04-14] MEDS: buPROPion SR 150 MG TABLET.ER PO SCH (08:16)
[2023-04-14] MEDS: HEPARIN SODIUM,PORCINE 5,000 UNIT/ML 1 ML VIAL SQ SCH (08:17)
[2023-04-14] MEDS: IPRATROPIUM-ALBUTEROL 3 ML NEB IH SCH ×2 (08:52→12:06)
[2023-04-14] MEDS ORDERED: hydroCHLOROthiazide 12.5 MG CAP PO SCH (09:00)
[2023-04-14] MEDS ORDERED: LEVOTHYROXINE 25 MCG TAB PO SCH (09:00)
[2023-04-14] MEDS ORDERED: ARIPiprazole 2 MG TAB PO SCH (09:00)
[2023-04-14] MEDS ORDERED: LOSARTAN 50 MG TAB PO SCH (09:00)
[2023-04-14] MEDS ORDERED: NON FORMULARY DRUG (Vitamin B Complex [Vitamin B Complex] 1 EACH Capsule) PO SCH (09:00)
[2023-04-14 09:27] VITALS: BP 120/67; PULSE 82; TEMP 98
--- NOTE | 2023-04-14 10:40 | P.CONS ---
History of Present Illness - Reason for Consult Consult date: 04/13/23 Medical management Requesting physician: Max Andrade - Chief Complaint Robotic-assisted right thoracoscopic right lower lobe wedge resection - History of Present Illness HISTORY OF PRESENT ILLNESS: This is a 72-year-old female with a previous medical history si gnificant for hypertension and hypertensive cardio vascular disease, hyperlipidemia, history of ulcerative with diarrhea, hypothyroidism, GERD with esophagitis, history of major depressive disorder, anxiety disorder, chronic tobacco use and dependence with chronic obstructive disease, patient was re cently screened with low-dose computed tomography scan of the chest as a screening tool for lung cancer, and she was found to have a suspicious nodule on the right lower lobe, she was sent to see pulmonary medicine Dr. Lyle after she has had a PET scan that was positive, underwent bronchoscopy with transbronchial biopsy by him the result was undetermine, she was referred to thoracic surgery, patient was seen by Dr. Andrade underwent repeated bronchoscopy yesterday with robotic assisted right thoracoscopic right lower lobe wedge resection with lymph node dissection and frozen section analysis, then she was admitted to telemetry unit, were asked to see the patient for postoperative medical management. REVIEW OF SYSTEMS: Constitutional: No documented fever, no chills, no night sweats. No weight change. No weakness, fatigue or lethargy. No daytime sleepiness. HEENT: No headache. No blurred vision or double vision, no loss of vision. No loss of Hearing, no ringing in the ears, no dizziness. No nasal drainage or congestion. No epistaxis. No sore throat. Lungs: positive for shortness of breath, occasional cough, no sputum production. No wheezing. Reports dyspnea with activity. Cardiovascular: No chest pain, no lower extremity edema. No palpitations. No paroxysmal nocturnal dyspnea. No orthopnea. No lightheadedness or dizziness. No syncopal episodes. Abdominal: Reports no abdominal pain. No nausea, vomiting. No diarrhea. No constipation. No bloody or tarry stools reports loss of appetite. Genitourinary: No dysuria, increased frequency, urgency. No urinary retention. Musculoskeletal: No myalgias. No muscle weakness, no gait dysfunction, no frequent falls. No back pain. No neck pain. Integumentary: No wounds, no lesions. No rash or pruritus. No unusual bruising. No change in hair or nails. Neurologic: No aphasia. No facial droop. No change in mentation. No head injury. No headache. No paralysis. No paresthesia. Psychiatric: positive for depression. positive for anxiety. No mood swings. Endocrine: No abnormal blood sugars. No weight change. PAST MEDICAL HISTORY: Hypertension and hypertensive cardio vascular disease. Hyperlipidemia. Hypothyroidism. GERD with esophagitis. Irritable bowel syndrome with diarrhea. Anxiety. Depression. Spondylosis of the lumbar spine. Chronic pain syndrome. Osteoarthritis. COPD. PAST SURGICAL HISTORY: Bilateral cataract surgery. Eyelid lift surgery bilaterally. Left eye retinal surgery Tonsillectomy. Total abdominal hysterectomy with bilateral salpingo-oophorectomy. Bilateral hand surgeries. Appendectomy. Colonoscopy. 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 FAMILY HISTORY: Father at age 62 from [place]. Mother at age of 83 from lung cancer and patient has 2 sisters one with IBS and the other one with diverticulosis patient has one son with diverticulosis and bipolar disorder. PHYSICAL EXAMINATION: General: 72-year-old female sitting up in bed in minimal respiratory distress. HEENT: Head is atraumatic, normocephalic, pupils were equal round reactive to light and recommendation, extraocular muscle movement were intact, sclera nonicteric, conjunctivae were pale, mucous membranes of the mouth are somewhat dry. Neck: Supple, no JVP, normal carotid upstroke bilaterally, no lymphadenopathy. Chest: Decreased breath sounds at the bases, few rhonchi, no expiratory wheezes, right sided chest tube, and minimal chest wall tenderness and no intercostal retractions Heart: First heart sound is normal, second heart sound is normal there is LELAND 2/6 located at the left sternal border. Abdomen: Soft, nontender, nondistended, positive bowel sounds. Extremities: There is no edema no calf tenderness DP +2 bilaterally. Neurologic examination: Patient is awake alert and oriented X 3, cranial nerves II-12 appear grossly intact, muscle power were 5 out of 5 in upper extremities and 5 out of 5 in bilateral lower extremities, deep tendon reflexes normal bilaterally. ASSESSMENT AND PLAN: 1. Postoperative day #0 status post robotic assisted right thoracoscopic right lower lobe wedge resection with lymph node dissection. Patient was instructed to use incentive spirometer, continue current pain management, start the patient back in her hydrocodone 10/325 mg 1 tablet every 6 hours as needed, and Dilaudid 0.5 mg IV push every 3 hours for breakthrough pain, increase activity, monitor the patient very closely, start the patient on nebulized treatment in the form of DuoNeb 3 mg nebulization 4 times every day, start the patient on Symbicort 160/4.5 g 2 puffs in nebulization twice every day oxygen as needed. 2. Hypertension and hypertensive cardio vascular disease. Continue patient on losartan hydrochlorothiazide 100/12.5 mg orally once every day. 3. Mixed hyperlipidemia. Continue patient on atorvastatin 40 mg orally once every day. 4. Hypothyroidism. Continue patient on Synthroid 50 g orally once every day. 5. GERD with esophagitis. Continue patient on Protonix 40 mg orally once every day. 6. Irritable bowel syndrome diarrhea. Stable. 7. Major depressive disorder. Continue patient on Cymbalta 60 mg orally once every day. As well as [id number] mg orally once every day along with Abilify 2 mg once every day. 8. Anxiety disorder. Continue Wellbutrin 300 mg once every day try to avoid Xanax. 9. Insomnia. Continue zolpidem 10 mg at bedtime as needed 10. Spondylosis of the lumbar spine with chronic pain syndrome continue with hydrocodone 10/325 mg orally 4 times every day, may use Dilaudid as needed for breakthrough pain. 11. DVT prophylaxis. Continue heparin 5000 units subcutaneously every 8 hours. 12. GI prophylaxis. Continue patient on Protonix 40 mg once every day. 13. Thank you for the consult we will follow the patient along with you. Past Medical History Past Medical History: COPD, GERD/Reflux, Hyperlipidemia, Hypertension, Osteoarth ritis (OA), Thyroid Disorder Additional Past Medical History / Comment(s): IBS, hx ulcerative colitis, hx diverticulitis, hx stress cluster headaches, degenerative disks, bulging disks,. malaise, wt loss of 20lbs last 8 months. hair and nails dont grow. small healing sore to rt calf History of Any Multi-Drug Resistant Organisms: None Reported Past Surgical History: Adenoidectomy, Hysterectomy, Orthopedic Surgery, Tonsi llectomy Additional Past Surgical History / Comment(s): carmen hand surgeries - 5 on each hand-has titanium implants, colonoscopy, dental work. eye surgeries ( eye lift with repair) Past Anesthesia/Blood Transfusion Reactions: No Reported Reaction Additional Past Alcohol Use History / Comment(s): smokes 1 1/2 PPD, has smoked for 40 yrs - Past Family History Mother Family Medical History: Cancer Additional Family Medical History / Comment(s): Lung cancer. Father Family Medical History: Myocardial Infarction ([place]) Medications and Allergies Home Medications Medication Instructions Recorded Confirmed Type ALPRAZolam [Xanax] 0.5 mg PO TID PRN 09/25/14 04/13/23 History Zolpidem [Ambien] 10 mg PO HS PRN 09/25/14 04/13/23 History Albuterol Sulfate [Proair Hfa] 2 puff INHALATION Q4H PRN 02/26/18 04/13/23 History Atorvastatin Calcium [Lipitor] 40 mg PO HS 02/26/18 04/13/23 History Levothyroxine Sodium [Synthroid] 25 mcg PO QAM 02/26/18 04/13/23 History Losartan/Hydrochlorothiazide 1 tab PO QAM 02/26/18 04/13/23 History [Losartan-Hctz 100-12.5 mg Tab] Omeprazole 40 mg PO QAM 02/26/18 04/13/23 History Ondansetron [Zofran] 4 mg PO Q4HR PRN 02/26/18 04/13/23 History buPROPion SR [Wellbutrin Sr] 150 mg PO BID 02/26/18 04/13/23 History HYDROcodone/APAP 10-325MG [[place] 1 tab PO Q6HR PRN 3 Days #28 tab 03/07/18 04/13/23 Rx 10-325] Unk Biotin 1 tab PO DAILY 03/13/23 04/13/23 History ARIPiprazole 2 mg PO QAM 03/13/23 04/13/23 History Budesonide/Glycopyr/Formoterol 2 puff INHALATION BID 04/09/23 04/13/23 History [Breztri Aerosphere Inhaler] Vitamin B Complex 1 each PO QAM 04/09/23 04/13/23 History Allergies Allergy/AdvReac Type Severity Reaction Status Date / Time NSAIDS (Non-Steroidal Allergy Nausea & Verified 04/13/23 06:19 Anti-Inflamma Vomiting & Diarrhea tetracycline Allergy Rash/Hives Verified 04/13/23 06:19 Physical Exam Vitals: Vital Signs Temp Pulse Pulse Resp BP Pulse Ox 04/14/23 09:06 80 04/14/23 08:52 80 04/14/23 08:00 98.0 F 82 18 120/67 97 04/14/23 04:00 97.7 F 91 18 150/66 93 L 04/14/23 00:00 92 18 158/66 95 04/13/23 21:23 82 04/13/23 21:17 82 04/13/23 20:00 97 F L 87 20 129/59 96 04/13/23 14:00 82 16 131/61 97 04/13/23 13:30 80 16 140/62 97 04/13/23 13:00 87 16 150/65 95 04/13/23 12:32 80 16 140/60 95 04/13/23 12:00 73 16 125/61 97 04/13/23 11:45 75 16 121/56 97 04/13/23 11:30 73 16 126/61 97 04/13/23 11:15 72 16 124/59 95 04/13/23 11:00 68 16 122/59 99 04/13/23 10:45 68 16 119/59 100 04/13/23 10:30 66 16 121/58 100 04/13/23 10:15 97 F L 65 12 132/63 100 Intake and Output 04/13/23 04/14/23 04/14/23 22:59 06:59 14:59 Intake Total 240 180 Output Total 140 64 Balance 100 -64 180 Intake: Oral 240 180 Output: Chest Tube Drainage 40 64 Chest Tube Right 40 64 Drainage 100 Right Chest 100 Other: Voiding Method Toilet Toilet # Voids 1 1 Results CBC & Chem 7: 04/14/23 05:24 04/14/23 05:24 Labs: Abnormal Lab Results - Last 24 Hours (Table) 04/14/23 04/14/23 Range/Units 05:24 05:24 WBC 12.7 H (3.8-10.6) k/uL RBC 3.15 L (3.80-5.40) m/uL Hgb 10.7 L (11.4-16.0) gm/dL Hct 33.3 L (34.0-46.0) % MCV 105.7 H (80.0-100.0) fL Neutrophils # 10.0 H (1.3-7.7) k/uL Glucose 176 H (74-99) mg/dL Calcium 8.3 L (8.4-10.2) mg/dL
--- NOTE | 2023-04-14 12:12 | XR ---
EXAMINATION TYPE: XR chest 2V DATE OF EXAM: 04/14/2023 COMPARISON: 04/13/2023 HISTORY: Right chest tube removal TECHNIQUE: Frontal and lateral views of the chest are obtained. FINDINGS: There has been interval removal of the right chest tube. There is a tiny 5-10% right apical pneumotho rax. The lungs are clear of consolidative or interstitial opacity. There is no pleural effusion. The heart size is normal and the pulmonary vasculature is not congested. There is decreased subcutaneous emphy sema on the right chest wall IMPRESSION: 5-10% tiny right apical pneumothorax following removal of the right chest tube
--- NOTE | 2023-04-14 12:29 | P.DS ---
Providers Date of admission: 04/13/23 05:34 Expected date of discharge: 04/14/23 Attending physician: Max Andrade MD Consults: 04/13/23 14:46 Consult Physician Routine Consulting Provider: Chuy Larkin Consult Reason/Comments: post wedge resection Do you want consulting provider notified?: Yes Primary care physician: Raphael Vela Hospital Course: FINAL DIAGNOSIS: 1. Lung nodule, frozen section negative for malignancy, final pathology pending 2. History of right-sided breast cancer status post lumpectomy, chemo, radiation 3. Current tobacco dependence 4. COPD 5. Hypertension 6. Hyperlipidemia 7. Hypothyroid 8. Depression, anxiety, chronic pain syndrome PRINCIPAL PROCEDURE: 1. Bronchoscopy 2. Right robotic-assisted thoracoscopic surgery with wedge resection of right lower lobe 2 3. Mediastinal lymph node dissection with frozen section analysis 4. Intercostal nerve blocks at 2 levels HISTORY OF PRESENT ILLNESS: This is a 72-year-old female who follows outpatient with Dr Vela for primary care and Dr. Lyle for pulmonology. She has been followed for a few months by her primary care physician for generalized not feeling well, which included a 20 pound weight loss along with some fatigue and other generalized symptoms. Her primary care ordered a chest CT which revealed a 1.7 cm right lower lobe nodule in the superior segment. Subsequently she underwent PET/CT imaging which revealed FDG avidity in the nodule as well as nonspecific very mild uptake in the right hilum. She underwent robotic-assisted bronchoscopy with transbronchial needle biopsies which were nondiagnostic. The patient was referred to Dr. Andrade from cardiothoracic surgery. She was recommended to undergo robotic-assisted thoracoscopic wedge resection with on table frozen section and lymph node dissection, with plans for completion lobectomy if frozen section was positive. The usual perioperative course was discussed in detail with the patient and her family, all risks and benefits were explained, all questions were answered, and consent was obtained to proceed with surgery. The patient was scheduled for surgery at the earliest possible date after cardiac clearance. She was recommended to quit smoking completely. HOSPITAL COURSE: The patient was brought to the hospital on 04/13/23, taken to the preoperative area, prepared in the usual fashion, and subsequently taken to the operating room where Dr. Andrade performed a right robotic assisted thoracoscopic surgery with wedge resection of the right lower lobe and mediastinal lymph node dissection. Upon completion of surgery the patient was extubated and taken to the recovery room for further monitoring. She was eventually admitted to 3 S. cardiac stepdown unit for further recovery and hemodynamic monitoring. There was no air leak in her chest tube the night of surgery and it was placed to waterseal. The following morning she remained stable, there was no air leak in her chest tube, chest x-ray demonstrated no pneumothorax, and her right-sided pleural chest tube was discontinued without incident. Follow-up chest x-ray was stable. Her oxygen was titrated down, she was tolerating oral diet, her pain was controlled, and she was ready to be discharged to home on postoperative day #1. She received written and verbal instruction regarding her medications, activity restrictions, signs and symptoms requiring physician notification, and follow-up appointments. Patient Condition at Discharge: Stable Plan - Discharge Summary Discharge Rx Participant: Yes New Discharge Prescriptions: New DULoxetine HCL [Cymbalta] 60 mg PO DAILY #30 cap Acetaminophen Tab [Tylenol] 650 mg PO Q4HR PRN tab PRN Reason: Mild To Moderate Pain (1 - 6) Continue Zolpidem [Ambien] 10 mg PO HS PRN PRN Reason: Insomnia Ondansetron [Zofran] 4 mg PO Q4HR PRN PRN Reason: Nausea buPROPion SR [Wellbutrin SR] 150 mg PO BID Atorvastatin Calcium [Lipitor] 40 mg PO HS Omeprazole 40 mg PO QAM Losartan/Hydrochlorothiazide [Losartan-Hctz 100-12.5 mg Tab] 1 tab PO QAM Levothyroxine Sodium [Synthroid] 25 mcg PO QAM Albuterol Sulfate [Proair Hfa] 2 puff INHALATION Q4H PRN PRN Reason: Shortness Of Breath HYDROcodone/APAP 10-325MG [[place] 10-325] 1 tab PO Q6HR PRN 3 Days #28 tab PRN Reason: Severe Pain ARIPiprazole 2 mg PO QAM Unk Biotin 1 tab PO DAILY Vitamin B Complex 1 each PO QAM Budesonide/Glycopyr/Formoterol [Breztri Aerosphere Inhaler] 2 puff INHALATION BID Discontinued ALPRAZolam [Xanax] 0.5 mg PO TID PRN PRN Reason: Anxiety Discharge Medication List Zolpidem [Ambien] 10 mg PO HS PRN 09/25/14 [History] Albuterol Sulfate [Proair Hfa] 2 puff INHALATION Q4H PRN 02/26/18 [History] Atorvastatin Calcium [Lipitor] 40 mg PO HS 02/26/18 [History] Levothyroxine Sodium [Synthroid] 25 mcg PO QAM 02/26/18 [History] Losartan/Hydrochlorothiazide [Losartan-Hctz 100-12.5 mg Tab] 1 tab PO QAM 02/26/18 [History] Omeprazole 40 mg PO QAM 02/26/18 [History] Ondansetron [Zofran] 4 mg PO Q4HR PRN 02/26/18 [History] buPROPion SR [Wellbutrin SR] 150 mg PO BID 02/26/18 [History] HYDROcodone/APAP 10-325MG [[place] 10-325] 1 tab PO Q6HR PRN 3 Days #28 tab 03/07/18 [Rx] Unk Biotin 1 tab PO DAILY 03/13/23 [History] ARIPiprazole 2 mg PO QAM 03/13/23 [History] Budesonide/Glycopyr/Formoterol [Breztri Aerosphere Inhaler] 2 puff INHALATION BID 04/09/23 [History] Vitamin B Complex 1 each PO QAM 04/09/23 [History] Acetaminophen Tab [Tylenol] 650 mg PO Q4HR PRN tab 04/14/23 [Rx] DULoxetine HCL [Cymbalta] 60 mg PO DAILY #30 cap 04/14/23 [Rx] Follow up Appointment(s)/Referral(s): Raphael Vela MD [Primary Care Provider] - As Needed Max Andrade MD [STAFF PHYSICIAN] - 04/24/23 2:15 pm Kalin Lyle MD [STAFF PHYSICIAN] - 1 Week (Will call on Sunday to get appt with Dr. Lyle ) Activity/Diet/Wound Care/Special Instructions: DISCHARGE INSTRUCTIONS: 1. No driving for 2 weeks, or until physician gives their ok. 2. No lifting, pushing, or pulling more than 10 pounds for 2 weeks. The physician will advise of any restriction changes. 3. Continue pain control per as needed orders. Alternate acetaminophen (Tylenol) and ibuprofen (Motrin/Advil) for pain. 4. Continue with incentive spirometry and splinting until otherwise directed by the physician. 5. Leave chest tube dressing for 48 hours. After that, remove all dressings and shower daily. 6. Routine incision care. No powders, lotions, ointments on incisions. 7. Please call surgeon/HEALTHCARE ACCOUNT MANAGER for temp greater than 101 F or purulent drainage from incisions. 8. Smoking cessation counseling and program information provided. Quitting smoking is the most important step you can take to improve your health. For additional information and assistance to quit smoking, please call the [place] tobacco quit line (5-836-VBRD-NOW/ ) or online: [email or web address].[email or web address] Discharge Disposition: HOME SELF-CARE
--- NOTE | 2023-04-14 12:44 | P.CNPUL ---
History of Present Illness Consult date: 04/14/23 Requesting physician: Max Andrade Reason for consult: lung mass, abnormal CXR/CT Chief complaint: Pulmonary nodule. History of present illness: Pulmonary consult dated 04/14/2023. This is a 72-year-old female who is postop day #1, status post robotically assisted wedge resection, right upper lobe, as well as mediastinal lymph node dissection. The patient had a biopsy showing squamous atypia, and the lesion, was FDG avid. Currently, the patient's doing well, and is on room air. She's getting dextrose with half-normal saline at 50 mL an hour. She has a right- sided chest tube in place, without a leak. She's not having any respiratory issues whatsoever. White count is 12.7, hemoglobin 10.7, hematocrit 33.3, with a normal platelet count. Sodium 139, potassium 3.8, chlorides 106, CO2 29, BUN 11, and creatinine 0.89. The right-sided chest tube was removed, revealing a small 5-10% right apical pneumothorax. Review of Systems REVIEW OF SYSTEMS: CONSTITUTIONAL: [Negative.] NEUROLOGIC: [ Negative.] HEENT: [ Negative.] CARDIAC: [Negative.] PULMONARY: Moderate pain at the surgical site. GI: [Negative.] : [Negative.] RHEUMATOLOGIC: [ Negative.] IMMUNOLOGIC: [ Negative.] ENDOCRINE: [Negative. ] DERMATOLOGIC: [Negative.] Past Medical History Past Medical History: COPD, GERD/Reflux, Hyperlipidemia, Hypertension, Osteoarthritis (OA), Thyroid Disorder Additional Past Medical History / Comment(s): IBS, hx ulcerative colitis, hx diverticulitis, hx stress cluster headaches, degenerative disks, bulging disks,. malaise, wt loss of 20lbs last 8 months. hair and nails dont grow. small healing sore to rt calf History of Any Multi-Drug Resistant Organisms: None Reported Past Surgical History: Adenoidectomy, Hysterectomy, Orthopedic Surgery, Tonsillectomy Additional Past Surgical History / Comment(s): carmen hand surgeries - 5 on each hand-has titanium implants, colonoscopy, dental work. eye surgeries ( eye lift with repair) Past Anesthesia/Blood Transfusion Reactions: No Reported Reaction Additional Past Alcohol Use History / Comment(s): smokes 1 1/2 PPD, has smoked for 40 yrs - Past Family History Mother Family Medical History: Cancer Additional Family Medical History / Comment(s): Lung cancer. Father Family Medical History: Myocardial Infarction ([place]) Medications and Allergies Home Medications Medication Instructions Recorded Confirmed Type Zolpidem [Ambien] 10 mg PO HS PRN 09/25/14 04/13/23 History Albuterol Sulfate [Proair Hfa] 2 puff INHALATION Q4H PRN 02/26/18 04/13/23 History Atorvastatin Calcium [Lipitor] 40 mg PO HS 02/26/18 04/13/23 History Levothyroxine Sodium [Synthroid] 25 mcg PO QAM 02/26/18 04/13/23 History Losartan/Hydrochlorothiazide 1 tab PO QAM 02/26/18 04/13/23 History [Losartan-Hctz 100-12.5 mg Tab] Omeprazole 40 mg PO QAM 02/26/18 04/13/23 History Ondansetron [Zofran] 4 mg PO Q4HR PRN 02/26/18 04/13/23 History buPROPion SR [Wellbutrin SR] 150 mg PO BID 02/26/18 04/13/23 History HYDROcodone/APAP 10-325MG [[place] 1 tab PO Q6HR PRN 3 Days #28 tab 03/07/18 04/13/23 Rx 10-325] Unk Biotin 1 tab PO DAILY 03/13/23 04/13/23 History ARIPiprazole 2 mg PO QAM 03/13/23 04/13/23 History Budesonide/Glycopyr/Formoterol 2 puff INHALATION BID 04/09/23 04/13/23 History [Breztri Aerosphere Inhaler] Vitamin B Complex 1 each PO QAM 04/09/23 04/13/23 History Acetaminophen Tab [Tylenol] 650 mg PO Q4HR PRN tab 04/14/23 Rx DULoxetine HCL [Cymbalta] 60 mg PO DAILY #30 cap 04/14/23 Rx Allergies Allergy/AdvReac Type Severity Reaction Status Date / Time NSAIDS (Non-Steroidal Allergy Nausea & Verified 04/13/23 06:19 Anti-Inflamma Vomiting & Diarrhea tetracycline Allergy Rash/Hives Verified 04/13/23 06:19 Physical Exam Osteopathic Statement: *. No significant issues noted on an osteopathic structural exam other than those noted in the History and Physical/Consult. Vitals: Vital Signs Temp Pulse Pulse Resp BP Pulse Ox 04/14/23 09:06 80 04/14/23 08:52 80 04/14/23 08:00 98.0 F 82 18 120/67 97 04/14/23 04:00 97.7 F 91 18 150/66 93 L 04/14/23 00:00 92 18 158/66 95 04/13/23 21:23 82 04/13/23 21:17 82 04/13/23 20:00 97 F L 87 20 129/59 96 04/13/23 14:00 82 16 131/61 97 04/13/23 13:30 80 16 140/62 97 04/13/23 13:00 87 16 150/65 95 Intake and Output 04/13/23 04/14/23 04/14/23 22:59 06:59 14:59 Intake Total 240 180 Output Total 140 64 Balance 100 -64 180 Intake: Oral 240 180 Output: Chest Tube Drainage 40 64 Chest Tube Right 40 64 Drainage 100 Right Chest 100 Other: Voiding Method Toilet Toilet # Voids 1 1 1 No acute distress, oriented 3. Currently on room air. Saturations are 96-97%. HEENT examination is grossly unremarkable. Mucous membranes are moist. No oral lesions. Neck supple. Full range of motion. No adenopathy thyromegaly or neck vein distention. Cardiovascular examination reveals regular rhythm rate. S1-S2 normal. No S3 or S4. No discernible murmur noted. Lungs reveal mostly clear breath sounds. Mild rhonchi noted. No wheezes or cr ackles. Breath sounds are diminished on the right side. Chest tube is noted on the right side. Abdomen soft bowel sounds are heard. No masses or tenderness. Extremities are intact. No cyanosis clubbing or edema. Skin is without rash or lesion. Neurologic examination is brief but nonfocal. Results - Laboratory Findings CBC and BMP: 04/14/23 05:24 04/14/23 05:24 Abnormal lab findings: Abnormal Labs 04/14/23 04/14/23 05:24 05:24 WBC 12.7 H RBC 3.15 L Hgb 10.7 L Hct 33.3 L MCV 105.7 H Neutrophils # 10.0 H Glucose 176 H Calcium 8.3 L - Diagnostic Findings Chest x-ray: image reviewed Assessment and Plan Assessment: Postop day #1, status post robotically assisted wedge resection, right lower lobe, and mediastinal lymph node dissection. Status post robotic bronchoscopy, showing squamous atypia. History of gastroesophageal reflux disease. History of hypertension. History of hypothyroidism. History of COPD. History of hyperlipidemia. History of anxiety/depression. History of chronic pain syndrome. History of osteoarthritis. Plan: Plan dated 04/14/2023. The patient's chest tube may come out later today, after a follow-up chest x- ray, the chest tube was off suction. In addition, there is a chance, the patient could be discharged home later today. Labs, x-rays, and medications are reviewed. The patient appears to be relatively stable. She's on room air. There is no leak from the chest tube. She is getting dextrose with half-normal saline at 50 mL an hour. Labs, x-rays, medications are reviewed. Prognosis is guarded. Time with Patient: Greater than 30
[2023-04-15] MEDS ORDERED: LEVOTHYROXINE 50 MCG TAB PO SCH (06:30)
[2023-04-15] MEDS ORDERED: DULoxetine HCL 60 MG CAPSULE.DR PO SCH (09:00)
--- NOTE | 2023-04-15 17:29 | P.ANPRN ---
Procedure Note - Anesthesia - Nerve Block Performed Right Erector Spinae Single Time Out Performed: Yes Date of Procedure: 04/13/23 Procedure Start Time: Procedure Stop Time: Location of Patient: PreOp Indication: Acute Post-Operative Pain, Requested by Surgeon Sedation Type: Sedate with meaningful contact maintained Preparation: Sterile Prep Position: Sitting Needle Types: Pajunk Needle Gauge: 21 Ultrasound used to visualize needle placement: Yes Ultrasound used to observe medication spread: Yes Blood Aspirated: No Pain Paresthesia on Injection Noted: No Resistance on Injection: Normal Image Stored and Saved: Yes Events: Uneventful and Well Tolerated (Ropivacaine 0.5% 15 mL plus normal saline 10 mL plus dexamethasone 4 mg given at T6)
--- NOTE | 2023-04-18 04:57 | CDI ---
Documentation Clarification Form Date: From: Maria Eugenia Caban Phone: Admit Date: 04/13/2023 05:34:00 AM Patient Name: Alina Justice Visit Number: [id number] Discharge Date: 04/14/2023 01:07:00 PM ATTENTION: The Clinical Documentation Specialists (CDI) and [facility] Coding Staff appreciate your assistance in clarifying documentation. Please respond to the clarification below the line at the bottom and electronically sign. The CDI & [facility] Coding staff will review the response and follow-up if needed. Please note: Queries are made part of the Legal Health Record. If you have any questions, please contact the author of this message via ITS. Dr. 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 Coding guidelines do not allow coding professionals to code based on pathology results; therefore, clarification is requested. 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
== END 2023-04-14 13:07 | disposition home or self-care (01) | DRG 168 ==
LOC: 2ORMAIN 05:34 → 3SCARD 14:17
PROVIDERS: ADMIT Thoracic Surgery (Cardiothoracic Vascular Surgery); ATTEND Thoracic Surgery (Cardiothoracic Vascular Surgery)
PROC: 07B74ZX Excision of Thorax Lymphatic, Percutaneous Endoscopic Approach, Diagnostic (ICD-10-PCS; 2023-04-13)
PROC: 8E0W4CZ Robotic Assisted Procedure of Trunk Region, Percutaneous Endoscopic Approach (ICD-10-PCS; 2023-04-13)
PROC: 0BBF4ZX Excision of Right Lower Lung Lobe, Percutaneous Endoscopic Approach, Diagnostic (ICD-10-PCS; principal; 2023-04-13 07:30)
DX: C34.31 Malignant neoplasm of lower lobe, right bronchus or lung (principal); E03.9 Hypothyroidism, unspecified; E78.2 Mixed hyperlipidemia; F17.200 Nicotine dependence, unspecified, uncomplicated; F32.9 Major depressive disorder, single episode, unspecified; F41.9 Anxiety disorder, unspecified; G47.00 Insomnia, unspecified; G89.4 Chronic pain syndrome; I10 Essential (primary) hypertension; J44.9 Chronic obstructive pulmonary disease, unspecified; K21.00 Gastro-esophageal reflux disease with esophagitis, without bleeding; K58.0 Irritable bowel syndrome with diarrhea; M47.816 Spondylosis without myelopathy or radiculopathy, lumbar region; Z79.890 Hormone replacement therapy; Z79.899 Other long term (current) drug therapy; Z80.1 Family history of malignant neoplasm of trachea, bronchus and lung; Z82.0 Family history of epilepsy and other diseases of the nervous system; Z82.49 Family history of ischemic heart disease and other diseases of the circulatory system; Z85.118 Personal history of other malignant neoplasm of bronchus and lung; Z85.3 Personal history of malignant neoplasm of breast; Z90.710 Acquired absence of both cervix and uterus; Z92.21 Personal history of antineoplastic chemotherapy; Z92.3 Personal history of irradiation; Z88.8 Allergy status to other drugs, medicaments and biological substances; Z71.6 Tobacco abuse counseling
CPT/HCPCS: 64999; 71045; 71046; 80048; 85025; 88305; 88307; 88313; 88331; 88342; 94640